=== PATIENT | female | born 1990 | race Caucasian/White ===

== ENCOUNTER 2019-09-29 17:07 | Emergency (ER) | payer BC ==
[2019-09-29 17:22] VITALS: BP 120/68
--- NOTE | 2019-09-29 17:34 | UC ---
FLU HPI - HPI Summary HPI Summary: 29-year-old female who has flulike symptoms since yesterday with fever, body aches. She has vomited approximate 6 times in the past 24 hours the most recent time being 2 hours ago. She is retaining water. - History of Current Complaint Chief Complaint: UCGeneralIllness Stated Complaint: BODY ACHES,VOMITTING,FEVER Time Seen by Provider: 09/29/19 17:25 Hx Obtained From: Patient Hx Last Menstrual Period: sep 19 ?: No - anal done Onset/Duration: Sudden Onset Severity Currently: Moderate Severity Initially: Moderate Pain Intensity: 9 Associated Signs & Symptoms: Positive: Fever, Myalgia, Nasal Congestion, Vomiting - Allergy/Home Medications Allergies/Adverse Reactions: Allergies Allergy/AdvReac Type Severity Reaction Status Date / Time azithromycin AdvReac Vomiting Verified 09/29/19 17:25 Home Medications: Home Medications Phenylephrine/Dm/Acetaminop/GG [Tylenol Cold-Flu Severe Caplet] 1 each PO ONCE PRN 09/29/19 [History Confirmed 09/29/19] PMH/Surg Hx/FS Hx/Imm Hx Previously Healthy: Yes - plan - Surgical History Surgical History: Yes Surgery Procedure, Year, and Place: csection - Family History Known Family History: Positive: Non-Contributory - Social History Lives: With Family Alcohol Use: None Substance Use Type: None Smoking Status (MU): Never Smoked Tobacco Review of Systems All Other Systems Reviewed And Are Negative: Yes Constitutional: Positive: Fever, Chills, Fatigue ENT: Positive: Nasal Discharge Respiratory: Positive: Cough Gastrointestinal: Positive: Vomiting - Patient vomited proximally 6 times in the past 24 hours the most recent being 2 hours ago., Nausea Musculoskeletal: Positive: Myalgia Is Patient Immunocompromised?: No Physical Exam Triage Information Reviewed: Yes Appearance: Well-Appearing, No Pain Distress, Well-Nourished Vital Signs: Initial Vital Signs Temp 101.9 F 09/29/19 17:17 Pulse 117 09/29/19 17:17 Resp 18 09/29/19 17:17 BP 120/68 09/29/19 17:17 Pulse Ox 98 09/29/19 17:17 Vital Signs Reviewed: Yes Eyes: Positive: Conjunctiva Clear ENT: Positive: Pharynx normal, TMs normal, Uvula midline Neck: Positive: Supple, Nontender, No Lymphadenopathy Respiratory: Positive: Lungs clear, Normal breath sounds, No respiratory distress, No accessory muscle use Cardiovascular: Positive: No Murmur, Pulses Normal, Brisk Capillary Refill, Tachycardia Abdomen Description: Positive: Nontender, No Organomegaly, Soft. Negative: CVA Tenderness (R), CVA Tenderness (L), Distended, Guarding, Hepatomegaly, Splenomegaly Bowel Sounds: Positive: Present Musculoskeletal Exam: Normal Neurological Exam: Normal Psychological Exam: Normal Skin Exam: Normal Flu Course/Dx - Course Course Of Treatment: Rapid flu test: Negative Patient is comfortable here and nontoxic. She has retain aleisha keith while she' s been here. The focus over the next few days is to rehydrate and follow up with her primary care provider or the emergency room if any worsening symptoms. - Differential Dx/Diagnosis Provider Diagnosis: Vomiting Discharge ED - Sign-Out/Discharge Documenting (check all that apply): Patient Departure All imaging exams completed and their final reports reviewed: No Studies - Discharge Plan Condition: Fair Disposition: HOME Prescriptions: Ondansetron TAB* [Zofran 4 MG Tab*] 4 mg PO Q6H PRN #15 tab PRN Reason: Nausea Patient Education Materials: Acute Nausea and Vomiting (ED) Referrals: [facility] [Outside] No Primary Care Phys,NOPCP [Primary Care Provider] - Additional Instructions: Clear liquids today, soup and crackers later today when you have no further vomiting then gradually increase to your regular diet. Avoid spicy or fatty foods today. Definite follow up with your primary care provider if no improvement in 1 day. Go to the ER if you feel like you are going to pass out or if you feel lightheaded or dizzy. - Billing Disposition and Condition Condition: FAIR Disposition: Home
[2019-09-29 17:47] LABS: Influenza A Molecular NEGATIVE (Negative); Influenza B Molecular NEGATIVE (Negative)
== END 2019-09-29 18:00 | disposition home or self-care (01) ==
LOC: UCCORT 17:07
DX: R11.2 Nausea with vomiting, unspecified (principal); R53.83 Other fatigue; R09.81 Nasal congestion; R05 Cough; M79.10 Myalgia, unspecified site; R50.9 Fever, unspecified; Z88.1 Allergy status to other antibiotic agents
CPT/HCPCS: 99202; G0463